=== PATIENT | female | born 1945 | race Caucasian/White ===

== ENCOUNTER 2017-04-12 08:57 | Outpatient (CLI) | payer MEDICARE, OTHER ==
[2013-02-05 11:08] VITALS: BP 113/66
[2017-04-12 09:39] LABS: eGFR (African) > 60; eGFR (Non-African) > 60
--- NOTE | 2017-04-12 11:30 | Diagnostic Imaging Report ---
DAYA BUENO [facility] [address] [facility] [address] [address] Report Submission Date: Apr 12, 2017 10:51:45 AM CDT Patient Study Name: MARILU HOUSE Date: Apr 12, 2017 9:28:38 AM CDT Modality Type: CR Gender: F Description: LOWER EXTREMITY : 45 Institution: [facility] Physician: DAYA BUENO Bilateral knees 3 views History: Bilateral knee pain Findings: 3 views of the right knee reveal mild 3 compartment osteoarthritic spurring without fracture, dislocation, or joint effusion. 3 views of the left knee reveal no evidence of fracture, dislocation, significant arthropathy, or joint effusion. Impression: 1. Mild 3 compartment right knee osteoarthritis. 2. Unremarkable left knee. Electronically signed on Apr 12, 2017 10:51:45 AM CDT by: Wilbert QUIGLEY
== END 2017-04-12 09:00 ==
LOC: LAB 08:57
PROVIDERS: ATTEND Family Medicine
DX: E78.2 Mixed hyperlipidemia (principal); Z78.0 Asymptomatic menopausal state; M25.561 Pain in right knee
CPT/HCPCS: 36415; 80053; 80061

== ENCOUNTER 2017-05-03 10:20 | Outpatient (CLI) | payer MEDICARE, OTHER ==
[2013-02-05 11:08] VITALS: BP 113/66
--- NOTE | 2017-05-03 14:13 | Diagnostic Imaging Report ---
DAYA BUENO [facility] [address] [facility] [address] [address] Report Submission Date: May 03, 2017 1:54:04 PM CDT Patient Study Name: MARILU HOUSE Date: May 03, 2017 10:25:09 AM CDT Modality Type: CR Gender: F Description: LOWER EXTREMITY : [address] Institution: [facility] Physician: DAYA BUENO Examination: Plain film toe History: injured 1st digit Findings: 3 views of the foot demonstrates a lucency involving the mid aspect of the distal phalanx 1st digit. No displacement. No other osseous cortical abnormalities. Articular degenerative changes. No soft tissue swelling. No joint effusion. Impression: Fracture distal phalanx 1st digit. Electronically signed on May 03, 2017 1:54:04 PM CDT by: Pérez QUIGLEY
== END 2017-05-03 10:30 ==
LOC: RAD 10:20
PROVIDERS: ATTEND Family Medicine
DX: S90.212A Contusion of left great toe with damage to nail, initial encounter (principal); X58.XXXA Exposure to other specified factors, initial encounter; Y93.9 Activity, unspecified; Y99.9 Unspecified external cause status
CPT/HCPCS: 73660

== ENCOUNTER 2018-04-18 09:09 | Outpatient (CLI) | payer MEDICARE, OTHER ==
[2013-02-05 11:08] VITALS: BP 113/66
[2018-04-18 10:14] LABS: eGFR (African) > 60; eGFR (Non-African) > 60
== END 2018-04-18 09:10 ==
LOC: LAB 09:09
PROVIDERS: ATTEND Family Medicine
DX: E78.2 Mixed hyperlipidemia (principal)
CPT/HCPCS: 36415; 80053; 80061

== ENCOUNTER 2018-04-24 08:01 | Outpatient (CLI) | payer MEDICARE, OTHER ==
[2013-02-05 11:08] VITALS: BP 113/66
== END 2018-04-24 08:03 ==
LOC: RAD 08:01
PROVIDERS: ATTEND Family Medicine
DX: M81.0 Age-related osteoporosis without current pathological fracture (principal)
CPT/HCPCS: 77080

== ENCOUNTER 2019-04-17 09:10 | Outpatient (CLI) | payer MEDICARE, OTHER ==
[2013-02-05 11:08] VITALS: BP 113/66
[2019-05-05 11:05] LABS: eGFR (Non-African) > 60
--- NOTE | 2019-05-22 10:37 | Diagnostic Imaging Report ---
DAYA BUENO [facility] [address] [facility] [address] [address] Report Submission Date: Apr 17, 2019 9:49:08 AM CDT Patient Study Name: MARILU HOUSE Date: Apr 17, 2019 9:25:46 AM CDT Modality Type: DX Gender: F Description: KNEE 3 VIEWS : 45 Institution: [facility] Physician: DAYA BUENO Right knee History: Pain AP, lateral and sunrise views of the right knee demonstrate normal patellofemoral and medial compartment joint space. There is moderate narrowing of lateral compartment joint space with associated prominent osteophytosis along the lateral femoral condyle and lateral tibial plateau. There is a small suprapatellar joint effusion. No acute osseous abnormalities are noted. Impression: Osteoarthritic findings of the right knee but most prominently involving the lateral joint compartment. Small suprapatellar joint effusion. Electronically signed on Apr 17, 2019 9:49:08 AM CDT by: Olimpia QUIGLEY
== END 2019-04-17 09:15 | disposition home or self-care (01) ==
LOC: LAB 09:10
PROVIDERS: ATTEND Family Medicine
DX: I10 Essential (primary) hypertension (principal); M25.561 Pain in right knee
CPT/HCPCS: 36415; 73562; 80048

== ENCOUNTER 2019-10-24 11:03 | Outpatient (CLI) | payer MEDICARE, OTHER ==
[2013-02-05 11:08] VITALS: BP 113/66
[2019-10-24 11:39] LABS: HDL 64 mg/dL (>40); eGFR (Non-African) > 60
== END 2019-10-24 11:08 ==
LOC: LAB 11:03
PROVIDERS: ATTEND Family Medicine
DX: I10 Essential (primary) hypertension (principal)
CPT/HCPCS: 36415; 80048; 80061